=== PATIENT | female | born 1960 | race Caucasian/White ===

== ENCOUNTER → 2016-11-17 | Outpatient (CLI) | payer BC, OTHER ==
--- NOTE | ~2016-11-17 | EXE ---
[facility] [place] [place] [address] STRESS ECHOCARDIOGRAM Name: MACHO HOOKS Room #: REG [facility]#: [id number] Admission: 11/17/16 Attend Phys: Neto Cordero MD Discharge: Date of : 56 Date of Service: 11/17/16 1453 Report #: [id number] THIS REPORT FOR: //name// APPROVED REPORT Exam: Stress Echocardiogram Indication: Chest pain , Hypertension, Hyperlipidemia Patient Location: Out-Patient Stress Nurse: Sun Christianson RN Room #: Echo lab Status: routine HR: 65 bpm Medical History Medical History: HTN, Hyperlipidemia Cardiac Risk Factors: HTN, Hyperlipidemia Exercise History: Indeterminate Procedure The patient underwent an Exercise Stress Test using the Mt Protocol. Blood pressure, heart rate, and EKG were monitored. An Echocardiogram was performed by freezer laboratory technician in four stages in quad fashion. At peak stress, four selected images were obtained and placed side by side with resting images for comparison. Stress Test Details Stress Test: Exercise stress testing was performed using a Mt protocol. HR Resting HR: 65 bpm Max Heart Rate (APMHR): 162 bpm Max HR Achieved: 153 bpm Target HR (85% APMHR): 137 bpm % of APMHR: 94 Recovery HR: 81 bpm HR response to stress: Normal HR response to stress BP Resting BP: 137/79 mmHg Max BP: 218/84 mmHg Recovery BP: 152/80 mmHg ECG Resting ECG: Sinus Rhythm Stress ECG: Sinus Rhythm, nonspecific ST-T abnormalities ST Change: Non-ischemic [facility] [address] [place] [address] STRESS ECHOCARDIOGRAM Name: MACHO HOOKS Room #: REG [facility]#: [id number] Admission: 11/17/16 Attend Phys: Neto Cordero MD Discharge: Date of : 56 Date of Service: 11/17/161452 Report #: [id number] Clinical Reason for Termination: Maximal effort Exercise duration: 9 min 37 sec Highest Stage Achieved: Stage 4: 4.2 mph at 16% grade. Exercise capacity: 12 METs Overall Exercise Capacity for Age: Normal Pre-Stress Echo The resting Echocardiogram showed normal left ventricular contractility with an estimated Ejection Fraction of about 55-60%. Post-Stress Echo The stress Echocardiogram showed normal left ventricular contractility with an estimated Ejection Fraction of about 65-70%. Clinical Normal augmentation of myocardial wall segments using a 17 segment model. Conclusion Clinical Response: Non-ischemic Exercise Capacity: Average Stress ECG Response: Non-ischemic Stress Echo Images: Non-ischemic No prior study available for comparison. Other Information Study Quality: Good <ELECTRONICALLY SIGNED> By: Neto Cordero MD 11/17/16 1453 52 1453 Neto Cordero MD /INF
--- NOTE | ~2016-11-17 | 2DMMODE ---
[facility] [place] [address] 2 D/M-MODE ECHOCARDIOGRAM Name: MACHO HOOKS LADAN Room #: REG [facility]#: [id number] Admission: 11/17/16 Attend Phys: Neto Cordero MD Discharge: Date of : 56 Date of Service: 11/17/16 1448 Report #: [id number] THIS REPORT FOR: //name// APPROVED REPORT Study performed: 11/17/2016 11:57:03 EXAM: Comprehensive 2D, Doppler, and color-flow Echocardiogram Patient Location: Out-Patient Room #: Echo lab Status: routine Other Information Study Quality: Good Risk Factors: Cardiac Risk Factors: Hyperlipidemia, HTN Indications Chest Pain Hypertension/HDD HLP. 2D Dimensions LVEF(%): 57.67 (>50%) IVSd: 11.54 (7-11mm) LVOT Diam: 18.76 (18-24mm) LVDd: 43.39 mm PWd: 11.66 (7-11mm) Ascending Ao: 29.07 (22-36mm) LVDs: 30.32 (25-40mm) Aortic Root: 28.22 mm IVC: 10.00 mm Hernandez's LVEF: 57.67 % Volumes Left Atrial Volume (Systole) Single Plane 4CH: 31.76 mL Single Plane 2CH: 54.13 mL LA ESV Index: 22.00 mL/m2 Aortic Valve AoV Peak Rock.: 1.55 m/s AO Peak Gr.: 9.61 mmHg LVOT Max P.07 mmHg LVOT Max V: 1.13 m/s MICHAEL Vmax: 2.01 cm2 Mitral Valve E/A Ratio: 0.6 [facility] [place] [address] 2 D/M-MODE ECHOCARDIOGRAM Name: MACHO HOOKS Room #: REG [facility]#: [id number] Admission: 11/17/16 Attend Phys: Neto Cordero MD Discharge: Date of : 56 Date of Service: 11/17/16 1448 Report #: [id number] MV Decel. Time: 260.81 ms MV E Max Rock.: 0.56 m/s MV A Rock.: 0.90 m/s MV PHT: 75.64 ms IVRT: 107.27 ms Pulmonary Valve PV Peak Rock.: 1.01 m/s PV Peak Gr.: 4.10 mmHg Pulmonary Vein P Vein S: 0.64 m/s P Vein A: 0.28 m/s P Vein D: 0.44 m/s P Vein A Dur.: 117.6 msec P Vein S/D Ratio: 1.45 Tricuspid Valve RAP Estimate: 5.00 mmHg Left Ventricle The left ventricle is normal size. The left ventricular systolic function is normal. The left ventricular ejection fraction is within the normal range. LVEF is 55-60%. Grade I - abnormal relaxation pattern. Right Ventricle The right ventricle is normal size. The right ventricular systolic function is normal. Atria The left atrium size is normal. The right atrium size is normal. Aortic Valve The aortic valve is normal in structure. No aortic regurgitation is present. There is no aortic valvular stenosis. Mitral Valve The mitral valve is normal in structure. There is no mitral valve regurgitation noted. No evidence of mitral valve stenosis. Tricuspid Valve The tricuspid valve is normal in structure. There is no tricuspid valve regurgitation noted. Pulmonic Valve The pulmonary valve is normal in structure. There is no pulmonic valvular regurgitation. [facility] [address] [place] [address] 2 D/M-MODE ECHOCARDIOGRAM Name: MACHO HOOKS Room #: REG [facility]#: [id number] Admission: 11/17/16 Attend Phys: Neto Cordero MD Discharge: Date of : 56 Date of Service: 11/17/16 1448 Report #: [id number] Great Vessels The aortic root is normal in size. IVC is normal in size and collapses >50% with inspiration. Pericardium There is no pericardial effusion. <Conclusion> The left ventricle is normal size. The left ventricular systolic function is normal. Grade I - abnormal relaxation pattern. The right ventricle is normal size. The left atrium size is normal. The aortic valve is normal in structure. The mitral valve is normal in structure. There is no pericardial effusion. <ELECTRONICALLY SIGNED> By: Neto Cordero MD 11/17/16 1448 1448 1448 Neto Cordero MD /INF
== END ==
LOC: CV 11:22
DX: R07.9 Chest pain, unspecified (principal); I10 Essential (primary) hypertension; E78.5 Hyperlipidemia, unspecified